=== PATIENT | female | born 1980 | race Caucasian/White ===

== ENCOUNTER 2018-02-07 07:06 | Emergency (ER) | payer MEDICAID ==
[~2018-02-07] VITALS: Ht 170.2 cm; Wt 116.0 kg
[2018-02-07] MEDS ORDERED: methylPREDNISolone sod succ 125mg/2ml vial IV ONE (09:05)
[2018-02-07 10:01] VITALS: BP 126/65
[2018-02-07] MEDS ORDERED: AMOX-580 PO (10:16)
== END 2018-02-07 10:28 | disposition home or self-care (01) ==
LOC: ER 07:08
DX: J32.9 Chronic sinusitis, unspecified (principal); Z79.899 Other long term (current) drug therapy
CPT/HCPCS: 70486; 96374; 99284; J2930

== ENCOUNTER 2018-08-10 16:28 | Emergency (ER) | payer MEDICAID ==
[~2018-08-10] VITALS: Ht 170.2 cm; Wt 119.5 kg
[2018-08-10 16:42] VITALS: BP 135/91
[2018-08-10] MEDS ORDERED: dexamethasone sod phosphate 10mg/ml inj PO STA (18:44)
[2018-08-10] MEDS ORDERED: ketorolac tromethamine 15mg/ml inj. IM ONE (18:45)
[2018-08-10] MEDS ORDERED: cyclobenzaprine 10mg tablet PO ONE (18:45)
[2018-08-10] MEDS ORDERED: ondansetron 4mg rapidly disintigrating tab PO ONE (19:10)
[2018-08-10] MEDS ORDERED: ONDA4TAB6 PO (19:13)
[2018-08-10] MEDS ORDERED: DEC1T PO (19:13)
== END 2018-08-10 19:25 | disposition home or self-care (01) ==
LOC: ER 16:28
DX: M48.02 Spinal stenosis, cervical region (principal); Z79.899 Other long term (current) drug therapy
CPT/HCPCS: 96372; 99284; J1100; J1885; 99283

== ENCOUNTER 2019-01-09 18:25 | Emergency (ER) | payer MEDICAID, OTHER ==
[~2019-01-09] VITALS: Ht 170.2 cm; Wt 98.2 kg
[~2019-01-09 18:25] MED LIST: ONDA4TAB6 PO
[2019-01-09 18:27] VITALS: BP 135/98
[2019-01-09] MEDS ORDERED: HYDR-3965 PO (21:06)
== END 2019-01-09 21:15 | disposition home or self-care (01) ==
LOC: EEVIPCON 18:26 → ER 18:26
DX: T76.21XA Adult sexual abuse, suspected, initial encounter (principal); F12.90 Cannabis use, unspecified, uncomplicated; G89.29 Other chronic pain; M54.5 Low back pain; Z79.899 Other long term (current) drug therapy; Y92.009 Unspecified place in unspecified non-institutional (private) residence as the place of occurrence of the external cause
CPT/HCPCS: 99284

== ENCOUNTER 2019-02-15 11:26 | Emergency (ER) | payer MEDICAID, OTHER ==
[~2019-02-15] VITALS: Ht 170.2 cm; Wt 114.0 kg
[2019-02-15 11:29] VITALS: BP 135/89
[2019-02-15] MEDS ORDERED: CEPH-572 PO (11:54)
[2019-02-15] MEDS ORDERED: ketorolac tromethamine 15mg/ml inj. IM ONE (12:05)
== END 2019-02-15 12:09 | disposition home or self-care (01) ==
LOC: ER 11:26
DX: L25.5 Unspecified contact dermatitis due to plants, except food (principal); G89.29 Other chronic pain; F12.90 Cannabis use, unspecified, uncomplicated; F10.99 Alcohol use, unspecified with unspecified alcohol-induced disorder; Z79.899 Other long term (current) drug therapy; Y90.9 Presence of alcohol in blood, level not specified
CPT/HCPCS: 99284

== ENCOUNTER 2019-02-25 10:08 | Emergency (ER) | payer MEDICAID ==
[~2019-02-25] VITALS: Ht 172.7 cm; Wt 114.1 kg
[2019-02-25 10:10] VITALS: BP 130/90
[2019-02-25] MEDS ORDERED: VALA10002 PO (10:23)
[2019-02-25] MEDS ORDERED: PERM60CR19 TP (10:23)
== END 2019-02-25 10:35 | disposition home or self-care (01) ==
LOC: ER 10:08
DX: B86 Scabies (principal); B00.1 Herpesviral vesicular dermatitis; F12.90 Cannabis use, unspecified, uncomplicated; F10.99 Alcohol use, unspecified with unspecified alcohol-induced disorder; Z79.899 Other long term (current) drug therapy; Y90.9 Presence of alcohol in blood, level not specified
CPT/HCPCS: 99283

== ENCOUNTER 2019-04-16 07:19 | Emergency (ER) | payer MEDICAID ==
[~2019-04-16] VITALS: Ht 170.2 cm; Wt 120.0 kg
[~2019-04-16 07:19] MED LIST changes: +VALA10002 PO
[2019-04-16 07:24] VITALS: BP 138/85
[2019-04-16] MEDS ORDERED: DOCO2CRE TOP (08:05)
[2019-04-16 10:01] LABS: HIV ANTIBODY 1&2 RAPID NON-REACTIVE (Neg)
[2019-04-17 08:14] LABS: HEP B CORE AB, IGM Negative (Negative); HEP B CORE AB, TOT Negative (Negative); HEPATITIS C ANTIBODY <0.1 s/co ratio (0.0-0.9)
== END 2019-04-16 08:58 | disposition home or self-care (01) ==
LOC: ER 07:21
DX: B00.1 Herpesviral vesicular dermatitis (principal); Z11.3 Encounter for screening for infections with a predominantly sexual mode of transmission; G89.29 Other chronic pain; F12.90 Cannabis use, unspecified, uncomplicated; F10.99 Alcohol use, unspecified with unspecified alcohol-induced disorder; Z79.899 Other long term (current) drug therapy; Y90.9 Presence of alcohol in blood, level not specified
CPT/HCPCS: 36415; 86703; 86704; 86705; 86706; 86803; 99283